=== PATIENT | male | born 1980 | race Caucasian/White ===

== ENCOUNTER 2016-05-07 04:55 | Emergency (ER) | payer SELFPAY ==
[~2016-05-07] VITALS: Ht 160 cm; Wt 72.6 kg
[2016-05-07 05:12] VITALS: BP 128/74
[2016-05-07] MEDS ORDERED: TETRACYCLINE PO (05:29)
[2016-05-07] MEDS ORDERED: [UNRECOGNIZED DRUG - OTHER] PO (05:29)
--- NOTE | 2016-05-07 05:38 | NUR ---
PATIENT PRESENTS TO ED WITH SORE THROAT X2DAYS . PT STATES SHE HAS A HEADACHE AND CHEST PAIN WHEN COUGHING WELL . DENIES N/V/D; SKIN IS PINK/WARM/DRY; AAOX4 WITH EVEN AND STEADY GAIT; LUNGS CLEAR BL; HR EVEN AND REGULAR; PT DENIES ANY FEVER AND SIB AT THIS TIME; PATIENT STATES PAIN OF 7/10 AT THIS TIME; VSS; PATIENT POSITIONED FOR COMFORT; HOB ELEVATED; BEDRAILS UP X2; BED DOWN. ER MD MADE AWARE OF PT STATUS.
--- NOTE | 2016-05-07 05:51 | NUR ---
Dr. Morris evaluating patient at bedside.
[2016-05-07] MEDS ORDERED: IBUPROFEN 800 MG TAB PO ONE (05:55)
[2016-05-07 06:34] VITALS: BP 121/71
--- NOTE | 2016-05-07 06:34 | NUR ---
Patient discharged with v/s stable. Written and verbal after care instructions given and explained. Patient alert, oriented and verbalized understanding of instructions. Ambulatory with steady gait. All questions addressed prior to discharge. ID band removed. Patient advised to follow up with PMD. Rx of PREDNISONE, AZITHROMYCIN, AND ALBUTEROL given. Patient educated on indication of medication including possible reaction and side effects. Opportunity to ask questions provided and answered.
== END 2016-05-07 06:34 | disposition home or self-care (01) ==
LOC: MED 04:55
DX: J02.0 Streptococcal pharyngitis (principal); J06.9 Acute upper respiratory infection, unspecified; Z88.0 Allergy status to penicillin